=== PATIENT | female | born 1945 | race Caucasian/White ===

== ENCOUNTER → 2016-08-04 | Outpatient (CLI) | payer MEDICARE ==
--- NOTE | 2016-08-04 16:20 | Diagnostic Imaging Report ---
INDICATION: Right knee pain. TECHNIQUE: Standing AP, oblique, and lateral views as well as a nonweightbearing sunrise view. COMPARISON: None available. FINDINGS: No fracture. Small knee joint effusion. Tricompartmental degenerative changes are present with mild joint space narrowing in the medial and patellofemoral compartments. Tricompartmental osteophytes are present. No patellar subluxation. IMPRESSION: 1. 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 2. Small knee joint effusion. Dictated by: Dictated on workstation # [id number]
== END ==
LOC: RAD 13:45
PROVIDERS: ATTEND Family Medicine
DX: M25.561 Pain in right knee (principal); M17.11 Unilateral primary osteoarthritis, right knee
CPT/HCPCS: 73564